=== PATIENT | male | born 1955 | race Caucasian/White ===

== ENCOUNTER 2025-01-01 07:39 | Day surgery (SDC) | payer SELFPAY, MEDICAID ==
--- NOTE | 2024-12-31 14:42 | PAT.ANE_ITS ---
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 When Was Last Pacemaker Check QUESTION #4 FULL TEXT: You/Your Family Experience fever (hyperthermia) with Anesthesia Last Oral Intake Last Oral intake: Last Oral Intake NPO since Meds taken in AM with sips of water? Meds patient instructed to take am of surgery PONV PONV - leather toggler: PONV - leather toggler Female No 12/31/24 11:53 HX of Motion Sickness No 12/31/24 11:53 HX of N/V After Surgery Yes 12/31/24 11:53 Non-Smoker Yes 12/31/24 11:53 Duration of Surgery greater No 12/31/24 11:53 than 60 minutes Number of Risk Factors 2 12/31/24 11:53 PONV Score Moderate Risk 12/31/24 11:53 Respiratory Assessment Respiratory Assessment - leather toggler: Respiratory Tract Infection Hx - leather toggler Hx Respiratory Tract Infection No 12/31/24 11:53 STOP Sleep Apnea STOP Sleep Apnea - leather toggler: STOP Sleep Apnea - leather toggler Hx Hypertension Yes: CONTROLLED WITH MED 12/31/24 11:53 Hx Sleep Apnea No 12/31/24 11:53 CPAP BIPAP Do you snore loudly (louder Yes 12/31/24 11:53 than talking or can be heard Do you often feel tired/ Yes 12/31/24 11:53 fatigued/ sleepy during daytime? Has anyone observed you stop No 12/31/24 11:53 breathing during sleep? STOP Results Positive 12/31/24 11:53 QUESTION #5 FULL TEXT : Do you snore loudly (louder than talking or can be heard through closed doors)? 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 Specify any problems Hx of Preganancy in last 3 N/A 12/31/24 11:53 Months Nurse Filling Out Transfusion DSCHRIBER 12/31/24 11:53 & Questions: Date: 12/31/24 12/31/24 11:53 Time: 11:57 12/31/24 11:53 Patient unable to answer at this time (ie. confused, unrespo /Reproduction History /Reproductive History - leather toggler: /Reproductive Hx- leather toggler Hx Now No 12/31/24 11:53 Gestational Age (in weeks): EDC: Hx Hx Para Hx Section SAB No 12/31/24 11:53 [facility] Medical History (Updated 12/31/24 @ 12:08 by Regina Ortiz) Loss of hearing Wears glasses Wears partial dentures Arthritis Back pain Syncope Diverticulosis Gastric reflux Shortness of breath on exertion Former smoker History of edema History of stress test Cardiology follow-up encounter Hypertension History of irregular heartbeat Home Medications ?Medication ?Instructions ?Recorded ?Last Taken ?Type aspirin 81 mg tablet,delayed 81 mg PO DAILY 12/31/24 0 12/27/24 History release (Adult Aspirin Regimen) losartan 50 mg tablet 50 mg PO DAILY blood pressur e 12/31/24 Unknown History metoprolol succinate 50 mg 50 mg PO QHS blood pressure 12/31/24 Unknown History tablet,extended release 24 hr omeprazole 20 mg tablet,delayed 20 mg PO DAILY 5 Unknown History release Allergy/AdvReac Type Severity Reaction Status Date / Time codeine Allergy Intermediate Rash Verified 12/31/24 11:51 Surgical History (Updated 12/31/24 @ 12:08 by Regina Ortiz) Hx of right cataract extraction Hx of left cataract extraction Hx of colonoscopy Hx of ureterotomy History of cystoscopy Hx of total knee arthroplasty Social History Smoking Status: Former smoker Audit: Pertinent Findings Pertinent Findings EKG Perinent findings: May 17, 2020. Normal sinus rhythm. Right bundle branch block. Stress test pertinent findings: May 17, 2020. EF of 65% at rest which increases to 80% with stress.. Normal dobutamine stress echo. No stress- induced wall motion abnormalities. No ischemic EKG changes. Echo (EF%) pertinent findings: May 17, 2020. No aortic stenosis noted. EF of 65%. Recommendation Anesthesia Recommendation Anesthesia recommendation: OPTIMIZED for anesthesia
[2025-01-01] VITALS (8 sets, daily range): BP systolic 102–131; BP diastolic 63–79; PULSE 61–80; RESP 16–18; TEMP 36.2–36.7; O2SAT 94–97; BMI 29.2
[2025-01-01] MEDS: Lactated Ringers 1,000 ML 15 ML IV (08:23)
--- NOTE | 2025-01-01 08:29 | PCM.PRE.AN2 ---
ASA Classification* ASA Classification ASA Classification: 2 Assessment & Plan Anesthesia* Anesthesia Assessment Anesthesia Assessment: Discussed sedation and/or anesthesia options, risks, benefits, and alternatives with patient/parents/legal guardian/POA. Questions invited. The patient/parents/legal guardian/POA seems to understand and agrees to proceed with anesthesia plan. Reviewed the physical assessment, medical history, allergy history and patient home medications list prior to surgery/procedure/anesthetic and documented any changes. Performed airway and anesthesia risk assessments. Anesthesia Type Anesthesia Type: MAC History Source History Obtained from:: Patient and Chart Anesthesia Focused Assessment* Temperature: 98.0 F Pulse Rate: 80 Blood Pressure: 131/78 Respiratory Rate: 18 Pulse Ox: 96 Oxygen Delivery Method: Room Air Airway Assessment Mouth opens: >3 cm Mallampati Score: II Teeth Condition: Caps/Crowns (Patient has a couple crowns on the bottom. They are tight.) and Partial (Patient has upper partial. 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 When Was Last Pacemaker Check QUESTION #4 FULL TEXT: You/Your Family Experience fever (hyperthermia) with Anesthesia Last Oral Intake Last Oral intake: Last Oral Intake NPO since 05:00 01/01/25 08:07 Meds taken in AM with sips of Yes 01/01/25 08:07 water? Meds patient instructed to omeprazole, losartan 01/01/25 08:07 take am of surgery Any additional information?: Yes NPO since: 05:00 Meds taken in AM with sips of water?: Yes PONV PONV - inspector final assembly mechanical: PONV - inspector final assembly mechanical Female No 12/31/24 11:53 HX of Motion Sickness No 12/31/24 11:53 HX of N/V After Surgery Yes 12/31/24 11:53 Non-Smoker Yes 12/31/24 11:53 Duration of Surgery greater No 12/31/24 11:53 than 60 minutes Number of Risk Factors 2 12/31/24 11:53 PONV Score Moderate Risk 12/31/24 11:53 Height & Weight Height & Weight: Anesthesia: Height & Weight Height 5 ft 9 in 01/01/25 08:07 Weight: 90 kg 01/01/25 08:07 Body Mass Index (BMI) 29.2 01/01/25 08:07 Respiratory Assessment Respiratory Assessment - inspector final assembly mechanical: Respiratory Tract Infection Hx - inspector final assembly mechanical Hx Respiratory Tract Infection No 12/31/24 11:53 STOP Sleep Apnea STOP Sleep Apnea - inspector final assembly mechanical: STOP Sleep Apnea - inspector final assembly mechanical Hx Hypertension Yes: CONTROLLED WITH MED 12/31/24 11:53 Hx Sleep Apnea No 12/31/24 11:53 CPAP BIPAP Do you snore loudly (louder Yes 12/31/24 11:53 than talking or can be heard Do you often feel tired/ Yes 12/31/24 11:53 fatigued/ sleepy during daytime? Has anyone observed you stop No 12/31/24 11:53 breathing during sleep? STOP Results Positive 12/31/24 11:53 QUESTION #5 FULL TEXT : Do you snore loudly (louder than talking or can be heard through closed doors)? 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 Specify any problems Hx of Preganancy in last 3 N/A 12/31/24 11:53 Months Nurse Filling Out Transfusion DSCHRIBER 12/31/24 11:53 & Questions: Date: 12/31/24 12/31/24 11:53 Time: 11:57 12/31/24 11:53 Patient unable to answer at this time (ie. confused, unrespo /Reproduction History /Reproductive History - inspector final assembly mechanical: /Reproductive Hx- inspector final assembly mechanical Hx Now No 12/31/24 11:53 Gestational Age (in weeks): EDC: Hx Hx Para Hx Section SAB No 12/31/24 11:53 Active Medications Active Medications: Current Medications Generic Name Dose Route Start Last Admin Trade Name Freq PRN Reason Stop Dose Admin Lactated Ringer's 1,000 mls @ 15 mls/hr 01/01/25 08:00 01/01/25 08:23 IV 15 mls/hr .Q48H KARUNA Administration PFSH Medical History Loss of hearing Wears glasses Wears partial dentures Arthritis Back pain Syncope Diverticulosis Gastric reflux Shortness of breath on exertion Former smoker History of edema History of stress test Cardiology follow-up encounter Hypertension History of irregular heartbeat Home Medications ?Medication ?Instructions ?Recorded ?Last Taken ?Type aspirin 81 mg tablet,delayed 81 mg PO DAILY 12/31/24 12/29/24 History release (Adult Aspirin Regimen) losartan 50 mg tablet 50 mg PO DAILY blood pressure 12/31/24 01/01/25 History omeprazole 20 mg tablet,delayed 20 mg PO DAILY 12/31/24 01/01/25 History release Allergy/AdvReac Type Severity Reaction Status Date / Time codeine Allergy Intermediate Rash Verified 01/01/25 08:04 Surgical History Hx of right cataract extraction Hx of left cataract extraction Hx of colonoscopy Hx of ureterotomy History of cystoscopy Hx of total knee arthroplasty Social History Smoking Status: Former smoker Review of Systems (Anesthesia) ROS Narrative System reviewed and no additional complaints, except as documented.
--- NOTE | 2025-01-01 08:40 | PCM.HP.STD ---
[facility] - General General Date of Admission: 01/01/25 Date of Service: 01/01/25 Chief Complaint: Screening colonoscopy and chronic heartburn HPI Narrative ADDIE LAWSON, is a 69 M who presents with the Chief Complaint: screening colonoscopy Pt referred from PCP for screening colonoscopy. Pt has had nervous stomach for many years. He has intermittent loose stools. He endorses having at least 2-3 bm per day. Last colonposcy was about 30 years ago with no abnormal findings. He denies family hx of colon cancer. He has had chronic heartburn for years and has taken Prevacid in the past. Currently on omeprazole OTC which controls it well. [facility] Medical History Loss of hearing Wears glasses Wears partial dentures Arthritis Back pain Syncope Diverticulosis Gastric reflux Shortness of breath on exertion Former smoker History of edema History of stress test Cardiology follow-up encounter Hypertension History of irregular heartbeat Home Medications ?Medication ?Instructions ?Recorded ?Last Taken ?Type aspirin 81 mg tablet,delayed 81 mg PO DAILY 12/31/24 12/29/24 History release (Adult Aspirin Regimen) losartan 50 mg tablet 50 mg PO DAILY blood pressure 12/31/24 01/01/25 History omeprazole 20 mg tablet,delayed 20 mg PO DAILY 12/31/24 01/01/25 History release Allergy/AdvReac Type Severity Reaction Status Date / Time codeine Allergy Intermediate Rash Verified 01/01/25 08:04 Surgical History Hx of right cataract extraction Hx of left cataract extraction Hx of colonoscopy Hx of ureterotomy History of cystoscopy Hx of total knee arthroplasty Social History Smoking Status: Former smoker ROS Constitutional Constitutional: Denies fatigue, fever(s), poor appetite, weight gain or weight loss Gastrointestinal Gastrointestinal: Denies belching, bloating, change in bowel habits, change in stool character, chewing difficulty, coffee ground emesis, constipation, cramping, diarrhea, dyspepsia, dysphagia, early satiety, excessive flatus, fecal incontinence, heartburn, hematemesis, hematochezia, hemorrhoids, loose stools, melena, nausea, odynophagia, rectal bleeding, tenesmus, vomiting or weight changes Vital Signs Vital Signs Vital Signs: 01/01/25 08:07 01/01/25 08:07 01/01/25 08:36 Temperature 98.0 F 98.0 F Temperature Source Temporal Pulse Rate 80 80 Respiratory Rate 18 18 Respiratory Pattern Normal Blood Pressure 131/78 H 131/78 H Blood Pressure Mean 95 Blood Pressure Source Monitor Blood Pressure Position Semi-Fowlers Blood Pressure Location Left Arm Pulse Ox 96 96 Oxygen Delivery Method Room Air Room Air Weight Weight: 198 lb 6.656 oz Body Mass Index (BMI) 29.2 Physical Exam Const alert, oriented x3, no apparent distress and healthy appearing General Appearance: cooperative GI normal to inspection, nondistended, normoactive bowel sounds, soft to palpation, non-tender and non-distended Percussion: normal to percussion Rectal Exam: deferred Assessment & Plan Assessment/Plan (1) Heartburn: (2) Screening for colon cancer: PLAN: Assessment and Plan Assessment and Plan (1) Screening for colon cancer: Status: Acute Plan: Addie is a 69 yo male pt here today for evaluation for screening colonoscopy. Pt last colonoscopy was about 30 years ago with normal finding. Pt has always had IBS type symptoms triggered by stress. He will have intermittent loose stools. Pt also with a hx of heartburn on PPI. He will undergo colonoscopy for colon cancer screening and EGD due to chronic heartburn. -Colonoscopy -EGD -Continue PPI -f/u after procedure
--- NOTE | 2025-01-01 09:00 | COLBX_PTH ---
PATIENT: ADDIE LAWSON LOC: EN U#:[id number] AGE/SX: 69/M ROOM: RE01/01/[address]: Dr. Jose Reid DO : 1955 BED: DIS: 01/01/2025 SPEC #: [id number] RECD: 01/01/25 10:44 STATUS: HUGO YRIS #: [id number] SENA: 01/01/25 09:[address]: Jose Reid DEPT: SURGICAL PATHOLOGY RECD BY: Francisco J Hays ENTERED: 01/01/25 15:20 SP TYPE: COLON BX OTHR DR: Ger Dowling, MONICA Tissues: A - Esophagus, NOS B - Gastric mucous membrane Procedures: Immunohistochemical Stains Surgery Specimen Level IV HEADER OPERATION: Colonoscopy, EGD, biopsy PRE-OP DIAGNOSIS: Heartburn, screening for colon cancer TISSUE SUBMITTED: A- Distal esophagus biopsy, B- Gastric body biopsy MICROSCOPIC DIAGNOSIS A. Distal esophagus, biopsy: - Squamous mucosa with reactive changes. - Columnar mucosa negative for goblet cell metaplasia. B. Gastric body, biopsy: - Active chronic gastritis. - IHC POSITIVE for H. pylori organisms. MICROSCOPIC DESCRIPTION Slides are reviewed. The diagnosis depends on the location of the biopsy and the extent of the mucosal irregularity. If the biopsy originates from the tubular esophagus and the mucosal irregularity extends at least 1 cm above the top of the gastric folds, this represents Jay mucosa. If the biopsy originates from the gastric cardia and or the mucosal irregularity is less than 1 cm in extent, this represents intestinal metaplasia. GROSS DESCRIPTION A. Received in fixative is one container labeled with the patient's name and designated Distal esophagus biopsy. The specimen consists of two irregular fragments of light jacobson soft tissue, each measuring 0.3 cm. The specimen is totally submitted in one cassette. B. Received in fixative is one container labeled with the patient's name and designated Gastric body biopsy. The specimen consists of multiple irregular fragments of light jacobson soft tissue that in aggregate measure 1.1 x 0.6 x 0.1 cm. The specimen is totally submitted in one cassette. CA 01/01/2025 CPT:[id number]
--- NOTE | 2025-01-01 09:43 | PCM.POST.ANE ---
Anesthesia: Postop Eval I Current Vital Signs Temperature: 97.1 F Pulse Rate: 68 Blood Pressure: 109/63 Respiratory Rate: 16 Pulse Ox: 96 Oxygen Delivery Method: Room Air Assessment Airway patent: Yes Spontaneous unlabored respirations: Yes Mental status: Asleep nausea: No Vomiting: No Anesthesia Complication: No Fluid Hydration Crystalloid volume administer (ml): 900 Total IV fluid infused: 900 Progress Note Anesthesia document: Postop Eval 1 completed: Yes
--- NOTE | 2025-01-01 09:47 | OP.PROVAT_ITS ---
01/01/2025 Ger Dowling Do Re : Upper GI endoscopy procedure for Toney Santos Dear Nitesh This procedure was performed on Wednesday, January 01, 2025. My impressions and recommendations are as follows: Impressions : - Z-line irregular, 40 cm from the incisors. Biopsied. - Chronic gastritis. Biopsied. - Normal second portion of the duodenum. Recommendations : - Await pathology results. - Continue present medications. My findings are described in the full procedure note, which is enclosed. If I can be of further assistance, please feel free to contact me at . Sincerely, Jose Reid, 01/01/2025 9:46:53 AM This report has been signed electronically.
--- NOTE | 2025-01-01 09:47 | OP.EGD_ITS ---
Patient Name: Toney Santos Procedure Date: 01/01/2025 9:07 AM Date of : 1955 Age: 69 Procedure: Upper GI endoscopy Indications: Heartburn, Suspected esophageal reflux Providers: Jose Reid DO Referring MD: Ger Dowling Do Medicines: Monitored Anesthesia Care Patient Profile: This is a 69 year old male. Refer to note in patient chart for documentation of history and physical. Patient has symptoms of chronic dyspepsia and chronic heartburn. Complications: No immediate complications. Procedure: Pre-Anesthesia Assessment: - Prior to the procedure, a History and Physical was performed, and patient medications and allergies were reviewed. The patient is competent. The risks and benefits of the procedure and the sedation options and risks were discussed with the patient. All questions were answered and informed consent was obtained. Patient identification and proposed procedure were verified by the physician in the pre-procedure area. Mental Status Examination: alert and oriented. Airway Examination: normal oropharyngeal airway and neck mobility. Respiratory Examination: clear to auscultation. CV Examination: normal. Prophylactic Antibiotics: The patient does not require prophylactic antibiotics. Prior Anticoagulants: The patient has taken no anticoagulant or antiplatelet agents. ASA Grade Assessment: II - A patient with mild systemic disease. After reviewing the risks and benefits, the patient was deemed in satisfactory condition to undergo the procedure. The anesthesia plan was to use monitored anesthesia care (MAC). Immediately prior to administration of medications, the patient was re-assessed for adequacy to receive sedatives. The heart rate, respiratory rate, oxygen saturations, blood pressure, adequacy of pulmonary ventilation, and response to care were monitored throughout the procedure. The physical status of the patient was re-assessed after the procedure. After obtaining informed consent, the endoscope was passed under direct vision. Throughout the procedure, the patient's blood pressure, pulse, and oxygen saturations were monitored continuously. The Colonoscope was introduced through the mouth, and advanced to the second part of duodenum. The upper GI endoscopy was accomplished without difficulty. The patient tolerated the procedure well. Scope In: 9:15:36 AM Scope Out: 9:19:06 AM Total Procedure Duration Time 0 hours 3 minutes 30 seconds Findings: The Z-line was irregular and was found 40 cm from the incisors. Biopsies were taken with a cold forceps for histology. Verification of patient identification for the specimen was done. Estimated blood loss was minimal. Patchy moderate inflammation characterized by erythema and friability was found in the gastric body. Biopsies were taken with a cold forceps for Helicobacter pylori testing. Biopsies were taken with a cold forceps for histology. Verification of patient identification for the specimen was done. Estimated blood loss was minimal. The second portion of the duodenum was normal. Impression: - Z-line irregular, 40 cm from the incisors. Biopsied. - Chronic gastritis. Biopsied. - Normal second portion of the duodenum. Recommendation: - Await pathology results. - Continue present medications. Procedure Code(s): --- Professional --- 74963, Esophagogastroduodenoscopy, flexible, transoral; with biopsy, single or multiple CPT copyright 2021 [employer]. All rights reserved. The codes documented in this report are preliminary and upon medical records coder review may be revised to meet current compliance requirements. Jose Reid DO 01/01/2025 9:46:53 AM This report has been signed electronically. Number of Addenda: 0 Note Initiated On: 01/01/2025 9:07 AM
--- NOTE | 2025-01-01 09:50 | OP.PROVAT_ITS ---
01/01/2025 Ger Dowling Do Re : Colonoscopy procedure for Toney Santos Dear Nitesh This procedure was performed on Wednesday, January 01, 2025. My impressions and recommendations are as follows: Impressions : - Diverticulosis in the recto-sigmoid colon, in the sigmoid colon and in the descending colon. - No specimens collected. Recommendations : - Discharge patient to home. - Resume previous diet. - Continue present medications. - Repeat colonoscopy in 10 years for screening purposes. My findings are described in the full procedure note, which is enclosed. If I can be of further assistance, please feel free to contact me at . Sincerely, Jose Reid, 01/01/2025 9:49:29 AM This report has been signed electronically.
--- NOTE | 2025-01-01 09:50 | OP.COLON_ITS ---
Patient Name: Toney Santos Procedure Date: 01/01/2025 9:20 AM Date of : 1955 Age: 69 Procedure: Colonoscopy Indications: Screening for colorectal malignant neoplasm Providers: Jose Reid DO Referring MD: Ger Dowling Do Medicines: Monitored Anesthesia Care Patient Profile: This is a 69 year old male. Refer to note in patient chart for documentation of history and physical. Patient has symptoms of chronic dyspepsia and chronic heartburn. Last Colonoscopy: none. The patient's first colonoscopy is today. Last Colonoscopy: more than 10 years ago. Complications: No immediate complications. Procedure: Pre-Anesthesia Assessment: - Prior to the procedure, a History and Physical was performed, and patient medications and allergies were reviewed. The patient is competent. The risks and benefits of the procedure and the sedation options and risks were discussed with the patient. All questions were answered and informed consent was obtained. Patient identification and proposed procedure were verified by the physician in the pre-procedure area. Mental Status Examination: alert and oriented. Airway Examination: normal oropharyngeal airway and neck mobility. Respiratory Examination: clear to auscultation. CV Examination: normal. Prophylactic Antibiotics: The patient does not require prophylactic antibiotics. Prior Anticoagulants: The patient has taken no anticoagulant or antiplatelet agents. ASA Grade Assessment: II - A patient with mild systemic disease. After reviewing the risks and benefits, the patient was deemed in satisfactory condition to undergo the procedure. The anesthesia plan was to use monitored anesthesia care (MAC). Immediately prior to administration of medications, the patient was re-assessed for adequacy to receive sedatives. The heart rate, respiratory rate, oxygen saturations, blood pressure, adequacy of pulmonary ventilation, and response to care were monitored throughout the procedure. The physical status of the patient was re-assessed after the procedure. After I obtained informed consent, the scope was passed under direct vision. Throughout the procedure, the patient's blood pressure, pulse, and oxygen saturations were monitored continuously. The Colonoscope was introduced through the anus and advanced to the cecum, identified by appendiceal orifice and ileocecal valve. The colonoscopy was performed without difficulty. The patient tolerated the procedure well. The quality of the bowel preparation was adequate. The ileocecal valve, appendiceal orifice, and rectum were photographed. Scope In: 9:21:24 AM Scope Withdrawal Time 0 hours 7 minutes 33 seconds Scope Out: 9:31:22 AM Total Procedure Duration Time 0 hours 9 minutes 58 seconds Findings: The perianal and digital rectal examinations were normal. Multiple small and large-mouthed diverticula were found in the recto-sigmoid colon, sigmoid colon and descending colon. No other significant abnormalities were identified in a careful examination of the remainder of the colon. Impression: - Diverticulosis in the recto-sigmoid colon, in the sigmoid colon and in the descending colon. - No specimens collected. Recommendation: - Discharge patient to home. - Resume previous diet. - Continue present medications. - Repeat colonoscopy in 10 years for screening purposes. Procedure Code(s): --- Professional --- 12452, Colonoscopy, flexible; diagnostic, including collection of specimen(s) by brushing or washing, when performed (separate procedure) CPT copyright 2021 [employer]. All rights reserved. The codes documented in this report are preliminary and upon radio machinist review may be revised to meet current compliance requirements. Jose Reid DO 01/01/2025 9:49:29 AM This report has been signed electronically. Number of Addenda: 0 Note Initiated On: 01/01/2025 9:20 AM
--- NOTE | 2025-01-01 14:24 | PCM.POSTANE2 ---
Anesthesia Postop Eval I Sum Postop Eval Completion status Anesthesia document: Postop Eval 1 completed: Yes Anesthesia Postop Eval I Summary Anesthesia Postop Eval I Summary: Anesthesia Postop Eval I: Assessment Summary Airway patent Yes 01/01/25 09:44 [email or web address] Spontaneous unlabored Yes 01/01/25 09:44 [email or web address] respirations Mental status Asleep 01/01/25 09:44 [email or web address] nausea No 01/01/25 09:44 [email or web address] Vomiting No 01/01/25 09:44 [email or web address] Anesthesia Postop Eval I: Fluid Summary Crystalloid volume administer 900 01/01/25 09:44 [email or web address] (ml) Colloids volume administered ( ml) Blood Product volume administered (ml) Total IV fluid infused 900 01/01/25 09:44 [email or web address] Anesthesia Postop Eval I: Summary Notes Anesthesia Complication No 01/01/25 09:44 [email or web address] Anesthesia Complication Comment: Post-operative progress note Anesthesia: Postop Eval II Evaluation Mental status: Awake and Calm Pain Level: 0 nausea: No Vomiting: No Complications Anesthesia Complication: No
== END 2025-01-01 10:30 | disposition home or self-care (01) ==
LOC: EN 07:43 → AC 07:47
PROVIDERS: PCP Physician Assistant; Referring Provider Physician Assistant; Visit Provider Internal Medicine Gastroenterology
PROC: 0DJD8ZZ Inspection of Lower Intestinal Tract, Via Natural or Artificial Opening Endoscopic (ICD-10-PCS; CPT 45378; principal; 2025-01-01 08:55)
DX: Z12.11 Encounter for screening for malignant neoplasm of colon (principal); K57.30 Diverticulosis of large intestine without perforation or abscess without bleeding; K29.50 Unspecified chronic gastritis without bleeding; B96.81 Helicobacter pylori [H. pylori] as the cause of diseases classified elsewhere; R19.7 Diarrhea, unspecified; K21.9 Gastro-esophageal reflux disease without esophagitis; I10 Essential (primary) hypertension; Z79.82 Long term (current) use of aspirin; Z79.899 Other long term (current) drug therapy; Z87.891 Personal history of nicotine dependence
CPT/HCPCS: 43239; 45378; 88305; 88342; J2405

== ENCOUNTER → 2025-02-15 | Outpatient (CLI) | payer MEDICAID, SELFPAY ==
[2025-02-16 11:09] LABS: H. PYLORI STOOL AG Negative (Negative)
== END | disposition home or self-care (01) ==
LOC: LAB 13:15 → LABSPEC 13:16
PROVIDERS: PCP Physician Assistant; Referring Provider Student in an Organized Health Care Education/Training Program; Visit Provider Student in an Organized Health Care Education/Training Program
DX: A04.8 Other specified bacterial intestinal infections (principal)
CPT/HCPCS: 87338